=== PATIENT | male | born 1960 | race Caucasian/White ===

== ENCOUNTER 2022-01-29 09:14 | Outpatient (CLI) | payer BC, SELFPAY | END 2022-01-29 09:15 | disposition home or self-care (01) | LOC: ANHAUDIO 09:16 | PROVIDERS: Referring Provider Nurse Practitioner Family; Visit Provider Nurse Practitioner Family | DX: H90.3 Sensorineural hearing loss, bilateral (principal) | CPT/HCPCS: 92557; 92567 ==

== ENCOUNTER 2025-04-23 08:06 | Outpatient (CLI) | payer BC, SELFPAY ==
[2025-04-23 08:39] LABS: Hematocrit 44.6 % (42.0-52.0); Hemoglobin 15.1 g/dL (14.0-18.0); Mean Corpuscular HGB Conc 33.9 g/dl (32-36); Mean Corpuscular Hemoglobin 29.7 pg (26-34); Mean Corpuscular Volume 87.6 fl (80-100); Platelet Count Result 239 k/mm3 (150-375); Red Blood Count 5.09 M/mm3 (4.6-6.20); White Blood Count 6.3 K/mm3 (4.5-10.0)
[2025-04-23 08:57] LABS: Alanine Aminotransferase 24 U/L (6-50); Albumin Level 4.2 g/dL (3.5-5.1); Alkaline Phosphatase 108 U/L (38-126); Anion Gap 9 mmol/L (4-12); Aspartate Amino Transferase 26 U/L (17-59); Bilirubin,Total 0.9 mg/dL (0.2-1.3); Blood Urea Nitrogen 14 mg/dL (9-20); Calcium 9.3 mg/dL (8.4-10.2); Carbon Dioxide 22 mmol/L (22-30); Chloride 108 mmol/L (98-107); Estimated Glomerular Filt Rate 47; Glucose 139 mg/dL (65-110); Potassium 3.8 mmol/L (3.4-5.0); Sodium 139 mmol/L (137-145); Total Protein 7.0 g/dL (6.3-8.2)
[2025-04-23 09:11] LABS: MALB Creatinine Ratio 11.7 mg/g (0-30)
[2025-04-23 09:17] LABS: Hemoglobin A1C 7.8 % (<5.7)
[2025-04-23 09:43] LABS: Prostate Specific Antigen 9.1 ng/mL (< OR = 4.0)
[2025-04-23 09:48] LABS: Thyroid Stimulating Hormone Reflex 0.456 uIU/mL (0.465-4.68)
[2025-04-23 10:20] LABS: Free T4 Free Thyroxine Reflex 1.22 ng/dL (0.78-2.19)
[2025-04-23 11:24] LABS: Total Triiodothyronine (T3) 0.97 NG/ML (0.82-1.58)
== END 2025-04-23 08:07 | disposition home or self-care (01) ==
LOC: ANHLAB 08:08
PROVIDERS: PCP Nurse Practitioner Family; Visit Provider Nurse Practitioner Family
DX: Z13.220 Encounter for screening for lipoid disorders (principal); Z12.5 Encounter for screening for malignant neoplasm of prostate; Z13.0 Encounter for screening for diseases of the blood and blood-forming organs and certain disorders involving the immune mechanism; I10 Essential (primary) hypertension; E11.59 Type 2 diabetes mellitus with other circulatory complications; E11.9 Type 2 diabetes mellitus without complications
CPT/HCPCS: 36415; 80053; 82043; 83036; 84153; 84439; 84443; 84480; 85027